=== PATIENT | male | born 1970 | race American Indian/Alaskan Native ===

== ENCOUNTER 2020-06-06 11:33 | Outpatient (CLI) | payer OTHER ==
--- NOTE | 2020-06-06 13:04 | XRay Report ---
BILATERAL KNEE 3 VIEW(S) INDICATION / CLINICAL INFORMATION: BILATERAL KNEE PAIN. COMPARISON: None available. FINDINGS: BONES / JOINT(S): No acute fracture or subluxation. 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 SOFT TISSUES: No significant abnormality. ADDITIONAL FINDINGS: None. Signer Name: Maikel Adames MD Signed: 06/06/2020 1:00 PM Workstation Name: [id number]
--- NOTE | 2020-06-06 13:33 | XRay Report ---
LUMBAR SPINE 3 VIEWS INDICATION / CLINICAL INFORMATION: BACK PAIN. COMPARISON: None available. FINDINGS: VERTEBRAE: No acute fracture. Mild retrolisthesis is noted at L1-L2. DISC SPACES / FACET JOINTS:Multilevel degenerative changes are noted of the spine most prominent at L 4-L5 and L5-S1 with loss of intervertebral disc space height and facet arthropathy. PARASPINAL SOFT TISSUES:No significant abnormality. ADDITIONAL FINDINGS: None. Signer Name: Maikel Adames MD Signed: 06/06/2020 1:29 PM Workstation Name: [id number]
== END 2020-06-06 11:34 | disposition home or self-care (01) ==
LOC: XRAY 11:33
PROVIDERS: ATTEND Emergency Medicine
DX: M17.4 Other bilateral secondary osteoarthritis of knee (principal); M43.16 Spondylolisthesis, lumbar region; M47.816 Spondylosis without myelopathy or radiculopathy, lumbar region; M47.817 Spondylosis without myelopathy or radiculopathy, lumbosacral region
CPT/HCPCS: 72100